=== PATIENT | female | born 1980 | race Caucasian/White ===

== ENCOUNTER 2018-11-04 15:29 | Emergency (ER) | payer BC ==
[2018-11-04 15:39] VITALS: BP 127/73
[2018-11-04] MEDS ORDERED: Alum Hydrox/Mag Hydrox/Simeth 30 ML, Lidocaine 2% 15 ML PO ONE ×2 (16:13)
[2018-11-04] MEDS ORDERED: Pantoprazole 40 MG Tab.CR PO ONE (16:14)
[2018-11-04] MEDS ORDERED: Pantoprazole 40 MG Vial IVPUSH ONE (16:17)
--- NOTE | 2018-11-04 16:28 | EDM.PDOC ---
ED HPI GENERAL MEDICAL PROBLEM - General Chief Complaint: Gastrointestinal Problem Stated Complaint: ABD PAIN Time Seen by Provider: 11/04/18 16:02 Source of Information: Reports: Patient History Limitations: Reports: No Limitations - History of Present Illness INITIAL COMMENTS - FREE TEXT/NARRATIVE: Patient is a 38-year-old female presents ED complaining of generalized abdominal pain described as a crampy sensation that waxes and wanes in intensity. States she's had increased flatulence as well as bubbling sensation to her abdomen. She is concerned about having a few episodes of black diarrhea that started yesterday. Of note patient has taken Pepto-Bismol over the past few days as well. She states her kids recently had gastroenteritis symptoms. States one child had nausea and vomiting with diarrhea that subsided over than few days. This week she had another child had similar symptoms this past Tuesday that has resolved. Patient's symptoms again started 3 days ago. She' s been eating a bland diet. Last ate soup today for lunch. In addition she's also complained of some acid reflux. Has not taken anything for it. She denies any fever, chills, emesis, dysuria, ingestion of battery questional food, recent antibiotic use, out of country travel, or any additional complaints. She denies being . Last menstrual cycle was one week ago. She carries a history of asthma and is on Provera, Advair, and montelukast. She has had no abdominal surgeries. Abdominal Pain Score (Numeric/FACES): 4 - Related Data Allergies Allergy/AdvReac Type Severity Reaction Status Date / Time codeine phosphate AdvReac Nausea Verified 11/04/18 15:40 [From Tylenol-Codeine] hydrocodone AdvReac Vomiting Verified 11/04/18 15:40 Home Meds: Home Meds Fluticasone/Salmeterol [Advair 250-50] 1 inh INH DAILY 04/12/15 [History] Montelukast [Singulair] 10 mg PO ONETIME 04/12/15 [History] Acetaminophen [Tylenol] 650 mg PO Q6H PRN #0 tablet 06/05/16 [Rx] Benzocaine/Menthol [Dermoplast Pain Relief Trezevant] 1 spray TOP ASDIRECTED PRN #0 canister 06/05/16 [Rx] Docusate Sodium [Colace] 100 mg PO BID PRN #0 cap 06/05/16 [Rx] Ibuprofen [IJD: Ibuprofen] 200 - 600 mg PO Q6H PRN #0 tablet 06/05/16 [Rx] Juvencio Cheryl [Tucks] 1 pad TOP ASDIRECTED PRN #0 pad 06/05/16 [Rx] Ondansetron [Zofran ODT] 4 mg PO Q6H PRN #12 tab.dis 11/04/18 [Rx] Past Medical History Other HEENT History: Wears reading glasses Respiratory History: Reports: Asthma, Other (See Below) Other Respiratory History: seasonal allergies, uses inhaler 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: , Spontaneous , Other (See Below) 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: Left breast fibroid removal, 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 ED EXAM, GI/ABD - Physical Exam Exam: See Below Exam Limited By: No Limitations General Appearance: Alert, WD/WN, No Apparent Distress Ears: Hearing Grossly Normal Nose: Normal Inspection Throat/Mouth: Normal Voice, No Airway Compromise Head: Atraumatic, Normocephalic, Sinus Tenderness Neck: Supple Respiratory/Chest: No Respiratory Distress, Lungs Clear, Normal Breath Sounds, No Accessory Muscle Use Cardiovascular: Normal Peripheral Pulses, Regular Rate, Rhythm, No Murmur GI/Abdominal Exam: Soft, No Organomegaly, No Distention, Tender (mild with palpation) Back Exam: Normal Inspection. No: CVA Tenderness (L), CVA Tenderness (R) Extremities: Normal Inspection, Non-Tender, No Pedal Edema Neurological: Alert, Oriented, CN II-XII Intact, Normal Cognition, No Motor/ Sensory Deficits Psychiatric: Normal Affect, Normal Mood Skin Exam: Warm, Dry, Intact, Normal Color, No Rash Course - Vital Signs Last Recorded V/S: Last Vital Signs Temp 97.4 F 05/18/19 15:35 Pulse 77 11/04/18 15:35 Resp 16 11/04/18 15:35 BP 127/73 11/04/18 15:35 Pulse Ox 98 11/04/18 15:35 Orthostatic Blood Pressure [ 121/84 Standing] Orthostatic Blood Pressure [ 131/78 Sitting] Orthostatic Blood Pressure [ 127/73 Supine] - Orders/Labs/Meds Orders: Active Orders 24 hr Category Date Time Status Hemoccult [Fecal Occult Blood Collection] [RC] Care 11/04/18 16:25 Active ASDIRECTED Orthostatic Vital Signs [RC] ASDIRECTED Care 11/04/18 15:50 Active Abdomen 2V AP Flat Upright [CR] Stat Exams 11/04/18 16:13 Taken WBC, STOOL [OP] Stat Lab 11/04/18 16:42 Ordered Labs: Laboratory Tests 11/04/18 11/04/18 11/04/18 Range/Units 15:40 15:40 16:30 WBC 5.88 (3.98-10.04) K/mm3 RBC 4.25 (3.98-5.22) M/mm3 Hgb 12.6 (11.2-15.7) gm/L Hct 38.3 (34.1-44.9) % MCV 90.1 (79.4-94.8) fl MCH 29.6 (25.6-32.2) pg MCHC 32.9 (32.2-35.5) g/dl RDW Std Deviation 43.3 (36.4-46.3) fL Plt Count 186 (182-369) K/mm3 MPV 10.9 (9.4-12.3) fl Neutrophils % (Manual) 51 (40-60) % Band Neutrophils % 2 (0-10) % Lymphocytes % (Manual) 31 (20-40) % Atypical Lymphs % 2 % Monocytes % (Manual) 8 (2-10) % Eosinophils % (Manual) 6 H (0.7-5.8) % Basophils % (Manual) 0 L (0.1-1.2) Platelet Estimate Adequate Plt Morphology Comment Normal RBC Morph Comment Normal Sodium (136-145) mEq/L Potassium (3.5-5.1) mEq/L Chloride (98-107) mEq/L Carbon Dioxide (21-32) mEq/L Anion Gap (5-15) BUN (7-18) mg/dL Creatinine (0.55-1.02) mg/dL Est Cr Clr Drug Dosing mL/min Estimated GFR (MDRD) (>60) mL/min BUN/Creatinine Ratio (14-18) Glucose (74-106) mg/dL Calcium (8.5-10.1) mg/dL Total Bilirubin (0.2-1.0) mg/dL AST (15-37) U/L ALT (14-59) U/L Alkaline Phosphatase (46-116) U/L C-Reactive Protein (<1.0) mg/dL Total Protein (6.4-8.2) g/dl Albumin (3.4-5.0) g/dl Globulin gm/dL Albumin/Globulin Ratio (1-2) Lipase (73-393) U/L Urine Color Yellow (Yellow) Urine Appearance Clear (Clear) Urine pH 6.5 (5.0-8.0) Ur Specific [place] 1.020 (1.005-1.030) Urine Protein Negative (Negative) Urine Glucose (UA) Negative (Negative) Urine Ketones Negative (Negative) Urine Occult Blood 2+ H (Negative) Urine Nitrite Negative (Negative) Urine Bilirubin Negative (Negative) Urine Urobilinogen 0.2 (0.2-1.0) Ur Leukocyte Esterase Negative (Negative) Urine RBC 5-10 H (0-5) /hpf Urine WBC Not seen (0-5) /hpf Ur Epithelial Cells 0-5 (0-5) /hpf Urine Bacteria Few (FEW) /hpf Urine Mucus Rare (FEW) /hpf Urine HCG, Qual Negative (NEGATIVE) 11/04/18 Range/Units 16:30 WBC (3.98-10.04) K/mm3 RBC (3.98-5.22) M/mm3 Hgb (11.2-15.7) gm/L Hct (34.1-44.9) % MCV (79.4-94.8) fl MCH (25.6-32.2) pg MCHC (32.2-35.5) g/dl RDW Std Deviation (36.4-46.3) fL Plt Count (182-369) K/mm3 MPV (9.4-12.3) fl Neutrophils % (Manual) (40-60) % Band Neutrophils % (0-10) % Lymphocytes % (Manual) (20-40) % Atypical Lymphs % % Monocytes % (Manual) (2-10) % Eosinophils % (Manual) (0.7-5.8) % Basophils % (Manual) (0.1-1.2) Platelet Estimate Plt Morphology Comment RBC Morph Comment Sodium 141 (136-145) mEq/L Potassium 3.4 L (3.5-5.1) mEq/L Chloride 107 (98-107) mEq/L Carbon Dioxide 23 (21-32) mEq/L Anion Gap 14.4 (5-15) BUN 15 (7-18) mg/dL Creatinine 0.7 (0.55-1.02) mg/dL Est Cr Clr Drug Dosing 99.01 mL/min Estimated GFR (MDRD) > 60 (>60) mL/min BUN/Creatinine Ratio 21.4 H (14-18) Glucose 94 (74-106) mg/dL Calcium 8.2 L (8.5-10.1) mg/dL Total Bilirubin 0.2 (0.2-1.0) mg/dL AST 23 (15-37) U/L ALT 29 (14-59) U/L Alkaline Phosphatase 58 (46-116) U/L C-Reactive Protein 1.3 H* (<1.0) mg/dL Total Protein 6.5 (6.4-8.2) g/dl Albumin 3.1 L (3.4-5.0) g/dl Globulin 3.4 gm/dL Albumin/Globulin Ratio 0.9 L (1-2) Lipase 156 (73-393) U/L Urine Color (Yellow) Urine Appearance (Clear) Urine pH (5.0-8.0) Ur Specific [place] (1.005-1.030) Urine Protein (Negative) Urine Glucose (UA) (Negative) Urine Ketones (Negative) Urine Occult Blood (Negative) Urine Nitrite (Negative) Urine Bilirubin (Negative) Urine Urobilinogen (0.2-1.0) Ur Leukocyte Esterase (Negative) Urine RBC (0-5) /hpf Urine WBC (0-5) /hpf Ur Epithelial Cells (0-5) /hpf Urine Bacteria (FEW) /hpf Urine Mucus (FEW) /hpf Urine HCG, Qual (NEGATIVE) Meds: Medications Discontinued Medications Generic Name Dose Route Start Last Admin Trade Name Freq PRN Reason Stop Dose Admin Al Hydroxide/Mg Hydroxide 30 0 ml 11/04/18 16:13 11/04/18 16:23 ml/ Lidocaine HCl 15 ml PO 11/04/18 16:14 45 ml ONETIME ONE Administration Pantoprazole Sodium 40 mg 11/04/18 16:14 Protonix PO 11/04/18 16:15 ONETIME ONE Pantoprazole Sodium 40 mg 11/04/18 16:17 11/04/18 16:24 Protonix Iv IVPUSH 11/04/18 16:18 40 mg ONETIME ONE Administration - Re-Assessments/Exams Free Text/Narrative Re-Assessment/Exam: IV was established by nursing staff. Orthostatic vitals were negative. No IVF's required. Mild pain with palpation of the abdomen. Negative McBurney's point, Olivo sign , and/or any adnexal tenderness. Initial labs and studies will include: CBC, chem 14, CRP, lipase, two-view of the abdomen and also Hemoccult test. Patient deferred a rectal exam for stool. Will provide a stool sample to test. Ordered a GI cocktail and also Protonix 40 mg IVP Labs reviewed: CBC unremarkable. CMP indicated potassium 3.4 only mildly low. Kidney function normal. CRP 1.3. Lipase normal. UA indicated 2+ occult blood with urine rbc's and 5-10. She discussed over her menstrual cycle one week ago. No history of kidney stones. 11/04/18 17:32 Patient was able to provide a stool sample. Stool Hemoccult test came back negative. We'll cancel the stool WBCs. Suspect patient has gastroenteritis viral in etiology with recent sick exposures with 2 kids at home with similar symptoms. Discussed lab results and x-ray findings. Etiology most likely viral GI bug. Will run its course of the next few days. Return precautions were discussed with the patient. She had no further questions or concerns. Departure - Departure Time of Disposition: 17:37 Disposition: Home, Self-Care 01 Condition: Good Clinical Impression: Viral diarrhea, Hypokalemia due to loss of potassium Hematuria Qualifiers: Hematuria type: unspecified type Qualified Code(s): R31.9 - Hematuria, unspecified - Discharge Information Prescriptions: Ondansetron [Zofran ODT] 4 mg PO Q6H PRN #12 tab.dis PRN Reason: Nausea/Vomiting Instructions: Dehydration, Adult, [id number], Viral Gastroenteritis, Adult, Diarrhea, Adult, Food Choices to Help Relieve Diarrhea, Adult Referrals: Bozena Dao MAKING MACHINE OPERATOR [Primary Care Provider] - Forms: ED Department Discharge Additional Instructions: Please read the education material in relation to what foods to eat for diarrhea. Use the Zofran as prescribed for nausea/vomiting PRN. Push the fluids. Eat a bland diet. Please return back to the ED if you develop any new or worsening symptoms as discussed. Please follow up with PCP to ensure resolution of blood within the urine. - My Orders Last 24 Hours: My Active Orders 11/04/18 15:50 Orthostatic Vital Signs [RC] ASDIRECTED 11/04/18 16:13 Abdomen 2V AP Flat Upright [CR] Stat 11/04/18 16:25 Hemoccult [Fecal Occult Blood Collection] [RC] ASDIRECTED 11/04/18 16:42 WBC, STOOL [OP] Stat - Assessment/Plan Last 24 Hours: My Active Orders 11/04/18 15:50 Orthostatic Vital Signs [RC] ASDIRECTED 11/04/18 16:13 Abdomen 2V AP Flat Upright [CR] Stat 11/04/18 16:25 Hemoccult [Fecal Occult Blood Collection] [RC] ASDIRECTED 11/04/18 16:42 WBC, STOOL [OP] Stat
--- NOTE | 2018-11-06 07:28 | CR ---
Abdomen: Supine and upright views of the abdomen were obtained. Comparison: No prior abdominal x-ray. Increased gas is noted throughout the colon. Rectal gas is seen and this increased gas does not appear to be obstructive but could represent a mild colonic ileus. No free air is seen. No small bowel dilatation is seen. Calcifications are noted within the pelvis compatible with phleboliths. Impression: 1. Possible colonic ileus. Diagnostic code #2
== END 2018-11-04 17:44 | disposition home or self-care (01) ==
LOC: JD.ED 15:29
DX: A08.4 Viral intestinal infection, unspecified (principal); E87.6 Hypokalemia; R31.9 Hematuria, unspecified; Z88.5 Allergy status to narcotic agent
CPT/HCPCS: 36415; 74019; 80053; 81001; 81025; 83690; 85007; 85027; 86140; 96374; 99284; A9270; C9113; 99283

== ENCOUNTER 2021-04-19 16:55 | Emergency (ER) | payer BC ==
[2021-04-19] MEDS ORDERED: Ondansetron 4 MG/2 ML SDV IVPUSH ONE ×2 (18:07→19:28)
[2021-04-19] MEDS ORDERED: HYDROmorphone 1 MG/ML Syringe IVPUSH STA (18:07)
[2021-04-19] MEDS ORDERED: Alum Hydrox/Mag Hydrox/Simeth 30 ML, Lidocaine 2% 15 ML PO STA ×2 (18:09)
--- NOTE | 2021-04-19 18:11 | EDM.PDOC ---
ED HPI GENERAL MEDICAL PROBLEM - General Chief Complaint: Abdominal Pain Stated Complaint: STOMACH PAIN/LOW BACK PAIN Time Seen by Provider: 04/19/21 17:39 Source of Information: Reports: Patient History Limitations: Reports: No Limitations - History of Present Illness INITIAL COMMENTS - FREE TEXT/NARRATIVE: Mrs. Graham is a very pleasant 40-year-old woman who now presents the ED stating that she developed sharp upper abdominal pain that wraps around to her back like a belt last night, 04/18/2021. She states that the pain has been constant, but progressively getting worse. She states that she feels better if she is hunched over, otherwise, she has not identified any modifiers. She states that she took some TUMS around 04:00 this morning, which did not help. She has not taken any [id number] or home remedies since then. No prior similar symptoms. Here in the ED, the patient's initial BP is found to be mildly elevated 144/100, otherwise, she is hemodynamically stable, afebrile, saturating 100% on room air. She appears to be comfortable, in no acute distress. The patient states that this past Tuesday she had a sore throat and right ear muffled sound, otherwise, the patient denies having a recent fever, chills, ear pain, nasal or sinus congestion, cough, dyspnea, chest pain, palpitations, nausea, vomiting, constipation, diarrhea, urinary symptoms, recent weight gain or weight loss, recent bloody bowel movements or black bowel movements, recent joint aches, headaches, or rashes. The patient does not recall the name of her PCP. Her woman's health provider is Bozena Dao NP. She has not received a COVID vaccination, nor an influenza vaccination this season. Lower Posterior Back Pain Score (Numeric/FACES): 6 Epigastric Pain Score (Numeric/FACES): 6 - Related Data Allergies Allergy/AdvReac Type Severity Reaction Status Date / Time codeine phosphate AdvReac Nausea Verified 04/19/21 17:48 [From Tylenol-Codeine] hydrocodone AdvReac Vomiting Verified 04/19/21 17:48 Home Meds: Home Meds Fluticasone/Salmeterol [Advair 250-50] 1 inh INH DAILY 04/12/15 [History] Montelukast [Singulair] 10 mg PO ONETIME 04/12/15 [History] Acetaminophen [Tylenol] 650 mg PO Q6H PRN #0 tablet 06/05/16 [Rx] Docusate Sodium [Colace] 100 mg PO BID PRN #0 cap 06/05/16 [Rx] Ibuprofen [IJD: Ibuprofen] 200 - 600 mg PO Q6H PRN #0 tablet 06/05/16 [Rx] Sertraline [Zoloft] 100 mg PO DAILY 04/19/21 [History] norgestrel-ethinyl estradioL [Elinest-28 Tablet] 1 tab PO DAILY 04/19/21 [History] Past Medical History HEENT History: Reports: Allergic Rhinitis, Impaired Vision (wears reading glasses) Respiratory History: Reports: Asthma (PFT-proven) Gastrointestinal History: Reports: Colon Polyp, Hemorrhoids (internal and external) 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 (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) Psychiatric History: Reports: Depression () - Infectious Disease History Infectious Disease History: Reports: Chicken Pox, Novel Coronavirus (dx'd Feb 2020) - Past Surgical History HEENT Surgical History: Reports: Naso-Sinus Surgery (x 3), Oral Surgery (dental extractions) GI Surgical History: Reports: Colonoscopy (x 2), Polypectomy Oncologic Surgical History: Reports: Other (See Below) (Left breast fibroid excision (benign)) Social & Family History - Tobacco Use Tobacco Use Status *Q: Never Tobacco User Second Hand Smoke Exposure: No - Caffeine Use Caffeine Use: Reports: Coffee, Tea - Alcohol Use Alcohol Use History: Yes Alcohol Use Frequency: Socially - Recreational Drug Use Recreational Drug Use: No - Living Situation & Occupation Living situation: Reports: , with Spouse, with Family (3 kids) 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 ED EXAM, GI/ABD - Physical Exam Exam: See Below Exam Limited By: No Limitations General Appearance: Alert, WD/WN, No Apparent Distress Eyes: Bilateral: Normal Appearance, EOMI Ears: Normal External Exam, Hearing Grossly Normal Nose: Normal Inspection Throat/Mouth: Normal Inspection, Normal Lips, Normal Voice, No Airway Compromise Head: Atraumatic, Normocephalic Neck: Normal Inspection, Full Range of Motion Respiratory/Chest: No Respiratory Distress, Lungs Clear, Normal Breath Sounds, No Accessory Muscle Use Cardiovascular: Normal Peripheral Pulses, Regular Rate, Rhythm, No Edema, No Gallop, No JVD, No Murmur, No Rub GI/Abdominal Exam: Normal Bowel Sounds, Soft, No Organomegaly, No Distention, No Abnormal Bruit, No Mass, Tender (Mild, generalized, probably more in the upper abdomen than the lower, but suprapubic tenderness, as well) Back Exam: Normal Inspection, Full Range of Motion. No: CVA Tenderness (L), CVA Tenderness (R) Extremities: Normal Inspection, Normal Range of Motion, No Pedal Edema, Normal Capillary Refill Neurological: Alert, Oriented, Normal Cognition, No Motor/Sensory Deficits Psychiatric: Normal Affect Skin Exam: Warm, Dry, Intact, Normal Color, No Rash Course - Vital Signs Last Recorded V/S: Last Vital Signs Temp 36.3 C 04/19/21 17:44 Pulse 76 04/19/21 17:44 Resp 12 04/19/21 17:44 BP 154/90 H 04/19/21 17:44 Pulse Ox 99 04/19/21 17:44 - Orders/Labs/Meds Orders: Active Orders 24 hr Category Date Time Status Abdomen Pelvis w Cont [CT] Stat Exams 04/19/21 18:07 Taken Famotidine [Pepcid] Med 04/19/21 21:32 Stat 40 mg PO ONETIME STA Sodium Chloride 0.9% [Normal Saline] 1,000 ml Med 04/19/21 18:15 Active IV ASDIRECTED Medication Orders Sodium Chloride (Normal Saline) 1,000 mls @ 150 mls/hr IV ASDIRECTED [facility] Last Admin: 04/19/21 18:35 Dose: 150 mls/hr Documented by: MANPREET Labs: Laboratory Tests 04/19/21 04/19/21 04/19/21 Range/Units 17:35 17:35 18:25 WBC 11.17 H (3.98-10.04) K/mm3 RBC 4.56 (3.98-5.22) M/mm3 Hgb 13.5 (11.2-15.7) gm/dl Hct 41.3 (34.1-44.9) % MCV 90.6 (79.4-94.8) fl MCH 29.6 (25.6-32.2) pg MCHC 32.7 (32.2-35.5) g/dl RDW Std Deviation 44.2 (36.4-46.3) fL Plt Count 298 D (182-369) K/mm3 MPV 10.5 (9.4-12.3) fl Neutrophils % (Manual) 65 H (40-60) % Band Neutrophils % 0 (0-10) % Lymphocytes % (Manual) 24 (20-40) % Atypical Lymphs % 2 % Monocytes % (Manual) 6 (2-10) % Eosinophils % (Manual) 3 (0.7-5.8) % Basophils % (Manual) 0 L (0.1-1.2) Platelet Estimate Adequate RBC Morph Comment Normal Sodium (136-145) mEq/L Potassium (3.5-5.1) mEq/L Chloride (98-107) mEq/L Carbon Dioxide (21-32) mEq/L Anion Gap (5-15) BUN (7-18) mg/dL Creatinine (0.55-1.02) mg/dL Est Cr Clr Drug Dosing mL/min Estimated GFR (MDRD) (>60) mL/min BUN/Creatinine Ratio (14-18) Glucose (70-99) mg/dL Calcium (8.5-10.1) mg/dL Total Bilirubin (0.2-1.0) mg/dL AST (15-37) U/L ALT (14-59) U/L Alkaline Phosphatase (46-116) U/L Total Protein (6.4-8.2) g/dl Albumin (3.4-5.0) g/dl Globulin gm/dL Albumin/Globulin Ratio (1-2) Lipase (73-393) U/L Urine Color Yellow (Yellow) Urine Appearance Clear (Clear) Urine pH 6.5 (5.0-8.0) Ur Specific [place] 1.025 (1.005-1.030) Urine Protein Negative (Negative) Urine Glucose (UA) Negative (Negative) Urine Ketones Negative (Negative) Urine Occult Blood 1+ H (Negative) Urine Nitrite Negative (Negative) Urine Bilirubin Negative (Negative) Urine Urobilinogen 0.2 (0.2-1.0) Ur Leukocyte Esterase Negative (Negative) Urine RBC 0-5 (0-5) /hpf Urine WBC 0-5 (0-5) /hpf Ur Squamous Epith Cells 0-5 (0-5) /hpf Urine Bacteria Many H (FEW) /hpf Urine Mucus Not seen (FEW) /hpf Urine HCG, Qual Negative (NEGATIVE) 04/19/21 Range/Units 18:25 WBC (3.98-10.04) K/mm3 RBC (3.98-5.22) M/mm3 Hgb (11.2-15.7) gm/dl Hct (34.1-44.9) % MCV (79.4-94.8) fl MCH (25.6-32.2) pg MCHC (32.2-35.5) g/dl RDW Std Deviation (36.4-46.3) fL Plt Count (182-369) K/mm3 MPV (9.4-12.3) fl Neutrophils % (Manual) (40-60) % Band Neutrophils % (0-10) % Lymphocytes % (Manual) (20-40) % Atypical Lymphs % % Monocytes % (Manual) (2-10) % Eosinophils % (Manual) (0.7-5.8) % Basophils % (Manual) (0.1-1.2) Platelet Estimate RBC Morph Comment Sodium 139 (136-145) mEq/L Potassium 3.5 (3.5-5.1) mEq/L Chloride 105 (98-107) mEq/L Carbon Dioxide 25 (21-32) mEq/L Anion Gap 12.5 (5-15) BUN 16 (7-18) mg/dL Creatinine 1.0 (0.55-1.02) mg/dL Est Cr Clr Drug Dosing 67.96 mL/min Estimated GFR (MDRD) > 60 (>60) mL/min BUN/Creatinine Ratio 16.0 (14-18) Glucose 105 H (70-99) mg/dL Calcium 8.6 (8.5-10.1) mg/dL Total Bilirubin 0.2 (0.2-1.0) mg/dL AST 16 (15-37) U/L ALT 21 (14-59) U/L Alkaline Phosphatase 64 (46-116) U/L Total Protein 7.3 (6.4-8.2) g/dl Albumin 3.3 L (3.4-5.0) g/dl Globulin 4.0 gm/dL Albumin/Globulin Ratio 0.8 L (1-2) Lipase 120 (73-393) U/L Urine Color (Yellow) Urine Appearance (Clear) Urine pH (5.0-8.0) Ur Specific [place] (1.005-1.030) Urine Protein (Negative) Urine Glucose (UA) (Negative) Urine Ketones (Negative) Urine Occult Blood (Negative) Urine Nitrite (Negative) Urine Bilirubin (Negative) Urine Urobilinogen (0.2-1.0) Ur Leukocyte Esterase (Negative) Urine RBC (0-5) /hpf Urine WBC (0-5) /hpf Ur Squamous Epith Cells (0-5) /hpf Urine Bacteria (FEW) /hpf Urine Mucus (FEW) /hpf Urine HCG, Qual (NEGATIVE) Meds: Medications Generic Name Dose Route Start Last Admin Trade Name Freq PRN Reason Stop Dose Admin Sodium Chloride 1,000 mls @ 150 mls/hr 04/19/21 18:15 04/19/21 18:35 Normal Saline IV 150 mls/hr ASDIRECTED PETER Administration Discontinued Medications Generic Name Dose Route Start Last Admin Trade Name Freq PRN Reason Stop Dose Admin Al Hydroxide/Mg Hydroxide 30 0 ml 04/19/21 18:09 04/19/21 18:24 ml/ Lidocaine HCl 15 ml PO 04/19/21 18:10 45 ml ONETIME STA Administration Hydromorphone HCl 0.5 mg 04/19/21 18:07 04/19/21 18:28 Hydromorphone 1 Mg/Ml Syringe IVPUSH 04/19/21 18:08 0.5 mg ONETIME STA Administration Ondansetron HCl 4 mg 04/19/21 18:07 04/19/21 18:26 Ondansetron 4 Mg/2 Ml Sdv IVPUSH 04/19/21 18:08 4 mg ONETIME ONE Administration Ondansetron HCl 4 mg 04/19/21 19:28 04/19/21 19:33 Ondansetron 4 Mg/2 Ml Sdv IVPUSH 04/19/21 19:29 4 mg ONETIME ONE Administration - Re-Assessments/Exams Free Text/Narrative Re-Assessment/Exam: 04/19/21 18:10 The cause of the patient's abdominal pain is not immediately obvious. I have ordered a work-up that includes numerous blood tests, a urinalysis by clean- catch, a urine test, and a CT of the abdomen and pelvis with oral and IV contrast. In the meantime, the patient will be given a GI cocktail, IV Dilaudid, IV Zofran, and IV fluid. 04/19/21 19:02 The patient reports that the GI cocktail initially numbed her epigastric pain. 04/19/21 19:51 The patient's CBC is remarkable for mild leukocytosis of 11.17, but with 0% bandemia, and the remainder of her CBC being unremarkable. Her CMP is remarkable for slight hyperglycemia of 105, and is otherwise unremarkable. Her lipase level is within normal limits at 120. Her urinalysis is unremarkable. Her urine test is negative. 04/19/21 20:38 Notified by the patient's RN that the patient was complaining of some right ear fullness. I went and talked talk to her. She reported that her right ear has been feeling plugged with a muffled sound since 04/14/2021. I looked at both of her ears. Her left TM appears to be perfectly normal, while she likely has mild serous otitis media to her right middle ear. There is no sign of an infection. I explained the anatomy, and recommended that she use a nasal steroid spray. 04/19/21 21:28 CT of the abdomen and pelvis with oral and IV contrast is read by Marbella as: 1. No evidence of acute abnormality in the abdomen or pelvis. 2. Chronic and incidental findings as above. 04/19/21 21:32 Test results discussed with the patient. As above, yumiko's work-up is entirely unremarkable. Because she had some modification of her symptoms following a GI cocktail, that indicates that her pain is either due to esophagitis, gastritis, or GERD. I recommended that we start her on OTC famotidine, and that she take 1 tablet twice a day for 7 days, then decrease the dose to 1 tablet once a day. If her symptoms are adequately treated on 2 tablets a day, but not on 1 tablet a day, she can return to 1 tablet twice a day. If her symptoms are inadequately treated on 1 tablet twice a day, she may need to be on a PPI, but under those circumstances, however did recommend that she follow-up with her PCP to arrange for an EGD. The patient agreed. Departure - Departure Time of Disposition: 21:34 Disposition: Home, Self-Care 01 Condition: Good Clinical Impression: Right serous otitis media, Gastritis, GERD (gastroesophageal reflux disease) - Discharge Information *PRESCRIPTION DRUG MONITORING PROGRAM REVIEWED*: Not Applicable *COPY OF PRESCRIPTION DRUG MONITORING REPORT IN PATIENT ROGERIO: Not Applicable Referrals: Bozena Dao, C[facility]ER [Primary Care Provider] - Forms: ED Department Discharge Additional Instructions: You were seen in the emergency room after developing upper abdominal pain that radiated around like a belt to your back. Work-up in the ER included numerous blood tests, a urinalysis, a urine test, and a CT of your abdomen and pelvis with oral and IV contrast. Your entire work-up was unremarkable. You do not have pancreatitis. There is no evidence of acute cholecystitis. Because you had some modification of your symptoms following a GI cocktail, the cause of your symptoms is most likely due to gastritis, GERD, or esophagitis. You have been started on the antacid famotidine (Pepcid). Famotidine is available [id number], and generic famotidine is just as good as namebrand Pepcid. We recommend that you take 1 tablet of famotidine every 12 hours, starting tomorrow morning, 04/20/2021, for 1 week. After 1 week, you may decrease the dosage to 1 tablet once a day. If your symptoms are well treated with 1 tablet twice a day, but return when you decrease the dosage to 1 tablet once a day, you may increase the dose to 1 ta blet twice a day going forward. If your symptoms are not well treated on 1 tablet twice a day, you may need to be on a stronger antacid medicine, such as a proton pump inhibitor. In that case, however, we recommend that you follow-up with your PCP to arrange for an EGD (scope of the stomach). If any other problems, please do not hesitate to return to the ER. Sepsis Event Note (ED) - Evaluation Sepsis Screening Result: No Definite Risk - Focused Exam Vital Signs: Vital Signs Temp Pulse Resp BP Pulse Ox 04/19/21 17:44 36.3 C 76 12 154/90 H 99 04/19/21 17:05 37.1 C 96 18 144/100 H 98 - My Orders Last 24 Hours: My Active Orders 04/19/21 18:07 Abdomen Pelvis w Cont [CT] Stat 04/19/21 18:15 Sodium Chloride 0.9% [Normal Saline] 1,000 ml IV ASDIRECTED 04/19/21 21:32 Famotidine [Pepcid] 40 mg PO ONETIME STA - Assessment/Plan Last 24 Hours: My Active Orders 04/19/21 18:07 Abdomen Pelvis w Cont [CT] Stat 04/19/21 18:15 Sodium Chloride 0.9% [Normal Saline] 1,000 ml IV ASDIRECTED 04/19/21 21:32 Famotidine [Pepcid] 40 mg PO ONETIME STA
[2021-04-19] MEDS ORDERED: Sodium Chloride 0.9% 1,000 ML IV SCH (18:15)
[2021-04-19] MEDS ORDERED: Famotidine 20 MG Tab PO STA (21:32)
[2021-04-20 00:54] VITALS: BP 139/75; PULSE 80
--- NOTE | 2021-04-20 07:18 | CT ---
CT abdomen and pelvis Technique: Multiple axial sections were obtained from above the dome of the diaphragm inferiorly through the pubic symphysis. Intravenous and oral contrast were utilized. Delayed images were obtained through the bladder. Comparison: Prior abdomen x-ray dated 11/04/18, no prior abdomen and pelvis CT is available. Findings: Visualized lung bases show nothing acute. Liver contains no focal abnormality. Spleen size is normal. Adrenal glands show no nodule. Pancreas appears within normal limits. Gallbladder contains no calcified gallstones. Kidneys show symmetric contrast enhancement. Several small nonobstructing calculi are seen within the right kidney. No ureteral dilatation or ureteral stone is seen. Abdominal aorta shows no aneurysm. No retroperitoneal adenopathy or mesenteric abnormalities are seen. Appendix is seen which is normal in size. No pelvic mass or adenopathy is seen. No discrete bowel abnormality is appreciated. Delayed images show contrast within the distal ureters and the bladder. Bone window settings were reviewed. No acute osseous abnormality is appreciated. Impression: 1. No acute abnormality is identified on CT study of the abdomen and pelvis. Diagnostic code #1 I agree with preliminary report from [facility], finalized on 04/19/21, 9:55 PM CDT, code 1
== END 2021-04-19 21:45 | disposition home or self-care (01) ==
LOC: JD.ED 16:55
DX: K21.9 Gastro-esophageal reflux disease without esophagitis (principal); H65.91 Unspecified nonsuppurative otitis media, right ear; K29.70 Gastritis, unspecified, without bleeding; Z88.5 Allergy status to narcotic agent; Z86.16 Personal history of COVID-19; Z79.899 Other long term (current) drug therapy
CPT/HCPCS: 36415; 74177; 80053; 81001; 81025; 83690; 85007; 85027; 96374; 96375; 96376; 99284; A9270; J1170; J2405; J7030

== ENCOUNTER 2021-05-26 08:48 | Day surgery (SDC) | payer BC ==
[~2021-05-26 08:48] MED LIST: Lactated Ringers 1,000 ML IV SCH; Lidocaine 1%/Sod Bicarbonate in NS 8.4% 1 ML Syringe IDERM PRN; Sodium Chloride 0.9% 10 ML Syringe FLUSH PRN
--- NOTE | 2021-05-26 09:50 | PCM.PREANE ---
Preanesthetic Assessment - Procedure Proposed Procedure: EGD - Anesthesia/Transfusion/Family Hx Anesthesia History: Prior Anesthesia Without Reaction Family History of Anesthesia Reaction: No Transfusion History: No Prior Transfusion(s) - Review of Systems General: No Symptoms Pulmonary: No Symptoms Cardiovascular: No Symptoms Gastrointestinal: Abdominal Pain (heart burn last night) Neurological: No Symptoms Other: Reports: None - Physical Assessment NPO Status Date: 05/25/21 NPO Status Time: 19:30 Vital Signs: Last Vital Signs Temp 36.4 C 05/26/21 09:00 Pulse 90 05/26/21 09:00 Resp 16 05/26/21 09:00 BP 136/97 H 05/26/21 09:00 Pulse Ox 97 05/26/21 09:00 Height: 1.65 m Weight: 85 kg ASA Class: 2 Mental Status: Alert & Oriented x3 Airway Class: Mallampati = 1 Dentition: Reports: Normal Dentition Thyro-Mental Finger Breadths: 3 Mouth Opening Finger Breadths: 3 ROM/Head Extension: Full Lungs: Clear to Auscultation, Normal Respiratory Effort Cardiovascular: Regular Rate, Regular Rhythm - Lab Values: Laboratory Last Values Urine HCG, Qual Negative (NEGATIVE) 05/26/21 09:05 - Allergies Allergies/Adverse Reactions: Allergies Allergy/AdvReac Type Severity Reaction Status Date / Time codeine phosphate AdvReac Nausea Verified 05/25/21 13:15 [From Tylenol-Codeine] hydrocodone AdvReac Vomiting Verified 05/25/21 13:15 - Blood Blood Available: No Product(s) Available: None - Anesthesia Plan Pre-Op Medication Ordered: None - Acknowledgements Anesthesia Type Planned: MAC Pt an Appropriate Candidate for the Planned Anesthesia: Yes Alternatives and Risks of Anesthesia Discussed w Pt/Guardian: Yes Pt/Guardian Understands and Agrees with Anesthesia Plan: Yes PreAnesthesia Questionnaire HEENT History: Reports: Allergic Rhinitis Other HEENT History: Wears reading glasses Cardiovascular History: Reports: None Respiratory History: Reports: Asthma Other Respiratory History: seasonal allergies, uses inhaler Gastrointestinal History: Reports: GERD, Hemorrhoids, Hiatal Hernia, Other (See Below) Other Gastrointestinal History: LLQ pain, abnormal defecation, constipation, stomach pain, C diff Genitourinary History: Reports: Other (See Below) Other Genitourinary History: dysuria 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 Other OB/BYN History: Left breast fibroid removal, 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 a tilted uterus Musculoskeletal History: Reports: Other (See Below) Other Musculoskeletal History: ankle pain, right knee pain Neurological History: Reports: Migraines Psychiatric History: Reports: Anxiety, Depression, Other (See Below) Other Psychiatric History: fatigue Endocrine/Metabolic History: Reports: None Hematologic History: Reports: None Other Hematologic History: decreased platelets Immunologic History: Reports: None Oncologic (Cancer) History: Reports: None Dermatologic History: Reports: Other (See Below) Other Dermatologic History: cystic acne, atypical nevi - Infectious Disease History Infectious Disease History: Reports: C-Difficile - Past Surgical History Head Surgeries/Procedures: Reports: None HEENT Surgical History: Reports: Naso-Sinus Surgery Cardiovascular Surgical History: Reports: None Respiratory Surgical History: Reports: None GI Surgical History: Reports: Colonoscopy, Other (See Below) Other GI Surgeries/Procedures: anal fissurectomy, hemorrhoidectomy Female Surgical History: Reports: None Male Surgical History: Reports: None Endocrine Surgical History: Reports: None Neurological Surgical History: Reports: None Musculoskeletal Surgical History: Reports: None Oncologic Surgical History: Reports: None Dermatological Surgical History: Reports: None - SUBSTANCE USE Tobacco Use Status *Q: Never Tobacco User Tobacco Use Within Last Twelve Months: No Second Hand Smoke Exposure: No Days Per Week of Alcohol Use: 1 Number of Drinks Per Day: 1 Total Drinks Per Week: 1 Recreational Drug Use History: No - HOME MEDS Home Medications: Home Meds Fluticasone/Salmeterol [Advair 250-50] 1 inh INH DAILY 04/12/15 [History] Montelukast [Singulair] 10 mg PO ONETIME 04/12/15 [History] Ibuprofen [IJD: Ibuprofen] 200 - 600 mg PO Q6H PRN #0 tablet 06/05/16 [Rx] Sertraline [Zoloft] 100 mg PO DAILY 04/19/21 [History] norgestrel-ethinyl estradioL [Elinest-28 Tablet] 1 tab PO DAILY 04/19/21 [History] Albuterol Sulfate [Albuterol Sulfate Hfa] 1 puff INH Q4H PRN 05/25/21 [History] Fluticasone Propionate [Flonase] 1 dose NASBOTH BID PRN 05/25/21 [History] Multivitamin 1 tab PO DAILY 05/25/21 [History] - CURRENT (IN HOUSE) MEDS Current Meds: Current Medications Lactated Ringer's (Ringers, Lactated) 1,000 mls @ 125 mls/hr IV ASDIRECTED PETER Stop: 05/26/21 23:20 Last Admin: 05/26/21 09:16 Dose: 125 mls/hr Documented by: Lidocaine/Sodium Bicarbonate (Lidocaine 1%/Sod Bicarbonate In Ns 8.4% 1 Ml Syringe) 0.25 ml IDERM ONETIME PRN PRN Reason: Prior to IV Start Stop: 05/26/21 18:00 Sodium Chloride (Sodium Chloride 0.9% 10 Ml Syringe) 10 ml FLUSH ASDIRECTED PRN PRN Reason: Keep Vein Open Stop: 05/26/21 18:00
[2021-05-26] MEDS ORDERED: Lidocaine 1% 4 ML ONE (10:20)
[2021-05-26] MEDS ORDERED: Propofol 200 MG/20 ML SDV ONE (10:20)
--- NOTE | 2021-05-26 10:50 | PCM.PRNOTE ---
- Free Text/Narrative Note: Date: 05/26/2021 Procedure: diagnostic esophagogastroduodenoscopy Indication: medically refractory GERD, hiatal hernia noted on CT Endoscopist: Sergei oDtson MD Findings: small sliding hiatal hernia Detailed Report: The patient was taken to the endoscopy suite and placed in left lateral decubitus position. Timeout was performed and monitored anesthesia care was initiated. A bite-block was placed. The scope was inserted into the mouth and advanced to the duodenum. Duodenal mucosa appeared normal; a biopsy of mucosa from the duodenal bulb was obtained with cold forceps. The scope was withdrawn into the stomach. The antrum and pylorus appeared normal. A biopsy of antral mucosa was obtained with cold forceps. The remainder of the gastric mucosa appeared normal without evidence of ulceration or inflammation. On retroflexion, small sliding hiatal hernia was appreciated. The scope was withdrawn into the distal esophagus. The Z-line appeared grossly normal, without evidence of gross metaplasia or reflux esophagitis. Several biopsies of distal esophageal mucosa were obtained with cold forceps. Air was suctioned from the stomach prior to withdrawal of the scope. The remainder of the esophagus appeared normal as the scope was withdrawn. The larynx was visualized and vocal cords appeared normal. The patient tolerated the procedure well.
--- NOTE | 2021-05-26 10:51 | PCM48HPAN ---
Post Anesthesia Note - EVALUATION WITHIN 48HRS OF ANESTHETIC Vital Signs in Normal Range: Yes Patient Participated in Evaluation: Yes Respiratory Function Stable: Yes Airway Patent: Yes Cardiovascular Function Stable: Yes Hydration Status Stable: Yes Pain Control Satisfactory: Yes Nausea and Vomiting Control Satisfactory: Yes Mental Status Recovered: Yes Vital Signs: Last Vital Signs Temp 97.7 F 05/26/21 10:43 Pulse 92 05/26/21 10:43 Resp 14 05/26/21 10:43 BP 103/64 05/26/21 10:43 Pulse Ox 97 05/26/21 10:43
[2021-05-26 11:27] VITALS: BP 112/62; PULSE 80
== END 2021-05-26 11:20 | disposition home or self-care (01) ==
LOC: JD.SDS 08:48
PROVIDERS: ATTEND Surgery
DX: K20.0 Eosinophilic esophagitis (principal); K21.9 Gastro-esophageal reflux disease without esophagitis; K44.9 Diaphragmatic hernia without obstruction or gangrene; G43.909 Migraine, unspecified, not intractable, without status migrainosus; Z88.5 Allergy status to narcotic agent; J45.909 Unspecified asthma, uncomplicated; F32.A Depression, unspecified; Z79.899 Other long term (current) drug therapy; Z98.890 Other specified postprocedural states
CPT/HCPCS: 43239; 81025; J2704; J7120; 00731

== ENCOUNTER 2021-05-31 18:24 | Emergency (ER) | payer BC ==
[2021-05-31 19:37] VITALS: BP 147/96; PULSE 81
[2021-05-31] MEDS ORDERED: Lactated Ringers 1,000 ML IV ONE (20:04)
[2021-05-31] MEDS ORDERED: diphenhydrAMINE 50 MG/ML SDV IVPUSH ONE (20:05)
[2021-05-31] MEDS ORDERED: Ondansetron 4 MG/2 ML SDV IVPUSH ONE (20:06)
--- NOTE | 2021-05-31 20:09 | EDM.PDOC ---
ED HPI GENERAL MEDICAL PROBLEM - General Chief Complaint: Headache Stated Complaint: HEADACHE Time Seen by Provider: 05/31/21 20:14 - History of Present Illness INITIAL COMMENTS - FREE TEXT/NARRATIVE: 40-year-old female presents the emergency room with a migraine-like headache. She usually gets several of these a year usually if she can get to an ibuprofen or sound like that she can have it off the past but she did not have such luck today she was not able to get to a medication that acts like abortive treatment.. She usually gets 2 to 3-year like this this 1 is acting of different she has some nausea with a significant headache. And some photophobia and nausea. She is not had any fevers or chills. Patient denies any other complaints at this time. She has not had the Covid vaccine yet. 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: Reports: Other (see below) Other 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: none Frontal Headache Pain Score (Numeric/FACES): 7 - Related Data Allergies Allergy/AdvReac Type Severity Reaction Status Date / Time codeine phosphate AdvReac Severe Nausea Verified 05/31/21 19:31 [From Tylenol-Codeine] hydrocodone AdvReac Severe Vomiting Verified 05/31/21 19:31 Home Meds: Home Meds Fluticasone/Salmeterol [Advair 250-50] 1 inh INH DAILY 04/12/15 [History] Montelukast [Singulair] 10 mg PO BEDTIME 04/12/15 [History] Ibuprofen [IJD: Ibuprofen] 200 - 600 mg PO Q6H PRN #0 tablet 06/05/16 [Rx] Sertraline [Zoloft] 100 mg PO DAILY 04/19/21 [History] norgestrel-ethinyl estradioL [Elinest-28 Tablet] 1 tab PO DAILY 04/19/21 [History] Albuterol Sulfate [Albuterol Sulfate Hfa] 1 puff INH Q4H PRN 05/25/21 [History] Fluticasone Propionate [Flonase] 1 dose NASBOTH BID PRN 05/25/21 [History] Multivitamin 1 tab PO DAILY 05/25/21 [History] Past Medical History HEENT History: Reports: Allergic Rhinitis Other HEENT History: Wears reading glasses Cardiovascular History: Reports: None Respiratory History: Reports: Asthma Other Respiratory History: seasonal allergies, uses inhaler Gastrointestinal History: Reports: GERD, Hemorrhoids, Hiatal Hernia, Other (See Below) Other Gastrointestinal History: LLQ pain, abnormal defecation, constipation, stomach pain, C diff Genitourinary History: Reports: Other (See Below) Other Genitourinary History: dysuria 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 Other BLOOD BANK BOOKING CLERK History: Left breast fibroid removal, 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 a tilted uterus Musculoskeletal History: Reports: Other (See Below) Other Musculoskeletal History: ankle pain, right knee pain Neurological History: Reports: Migraines Psychiatric History: Reports: Anxiety, Depression, Other (See Below) Other Psychiatric History: fatigue Endocrine/Metabolic History: Reports: None Hematologic History: Reports: None Other Hematologic History: decreased platelets Immunologic History: Reports: None Oncologic (Cancer) History: Reports: None Dermatologic History: Reports: Other (See Below) Other Dermatologic History: cystic acne, atypical nevi - Infectious Disease History Infectious Disease History: Reports: C-Difficile, Novel Coronavirus - Past Surgical History Head Surgeries/Procedures: Reports: None HEENT Surgical History: Reports: Naso-Sinus Surgery Other HEENT Surgeries/Procedures: [place] teeth extraction, sinus surgery x 2. Cardiovascular Surgical History: Reports: None Respiratory Surgical History: Reports: None GI Surgical History: Reports: Colonoscopy, Other (See Below) Other GI Surgeries/Procedures: anal fissurectomy, hemorrhoidectomy Female Surgical History: Reports: None Endocrine Surgical History: Reports: None Neurological Surgical History: Reports: None Musculoskeletal Surgical History: Reports: None Oncologic Surgical History: Reports: None Dermatological Surgical History: Reports: None Social & Family History - Tobacco Use Tobacco Use Status *Q: Never Tobacco User - Caffeine Use Caffeine Use: Reports: Coffee - Recreational Drug Use Recreational Drug Use: No - Living Situation & Occupation Living situation: Reports: , with Spouse, with Family (3 kids) 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 Denies: No Symptoms HEENT: Reports: No Symptoms Respiratory: Reports: No Symptoms Cardiovascular: Reports: No Symptoms Endocrine: Reports: No Symptoms GI/Abdominal: Reports: Nausea : Reports: No Symptoms Musculoskeletal: Reports: No Symptoms Skin: Reports: No Symptoms Neurological: Reports: Headache Psychiatric: Reports: No Symptoms Hematologic/Lymphatic: Reports: No Symptoms Immunologic: Reports: No Symptoms - Physical Exam Exam: See Below Exam Limited By: No Limitations General Appearance: Alert, No Apparent Distress Eye Exam: Bilateral Eye: EOMI, Normal Inspection, PERRL Ears: Normal External Exam, Normal Canal, Hearing Grossly Normal, Normal TMs Nose: Normal Inspection, Normal Mucosa, No Blood Throat/Mouth: Normal Inspection, Normal Lips, Normal Teeth, Normal Gums, Normal Oropharynx, Normal Voice, No Airway Compromise Head Exam: Atraumatic, Normocephalic Neck: Normal Inspection, Supple, Non-Tender, Full Range of Motion Respiratory/Chest: No Respiratory Distress, Lungs Clear, Normal Breath Sounds, No Accessory Muscle Use, Chest Non-Tender Cardiovascular: Normal Peripheral Pulses, Regular Rate, Rhythm, No Edema, No Gallop, No JVD, No Murmur, No Rub GI/Abdominal: Normal Bowel Sounds, Soft, Non-Tender, No Organomegaly, No Distention, No Abnormal Bruit, No Mass Neuro Exam (Abbreviated): CN II-XII Intact, Normal Cognition, Normal Reflexes, No Motor/Sensory Deficits. No: Confused, Disoriented, Slow to Respond, Se nsory/Motor Deficit Back Exam: Normal Inspection. No: CVA Tenderness (L), CVA Tenderness (R) Extremities: Normal Inspection, Normal Range of Motion, No Pedal Edema, Other (All muscle groups equal and appropriate) Psychiatric: Normal Affect, Normal Mood Skin Exam: Warm, Dry, Intact, Diaphoretic Course - Vital Signs Last Recorded V/S: Last Vital Signs Temp 37.1 C 05/31/21 19:35 Pulse 81 05/31/21 19:35 Resp 20 05/31/21 19:35 BP 147/96 H 05/31/21 19:35 Pulse Ox 99 05/31/21 19:35 - Orders/Labs/Meds Meds: Medications Discontinued Medications Generic Name Dose Route Start Last Admin Trade Name Freq PRN Reason Stop Dose Admin Diphenhydramine HCl 50 mg 05/31/21 20:05 05/31/21 20:18 Diphenhydramine 50 Mg/Ml Sdv IVPUSH 05/31/21 20:06 50 mg ONETIME ONE Administration Lactated Ringer's 1,000 mls @ 999 mls/hr 05/31/21 20:04 05/31/21 20:19 Ringers, Lactated IV 05/31/21 21:04 999 mls/hr .BOLUS ONE Administration Ketorolac Tromethamine 15 mg 05/31/21 21:22 05/31/21 21:28 Ketorolac 15 Mg/Ml Sdv IVPUSH 05/31/21 21:23 15 mg ONETIME ONE Administration Ondansetron HCl 4 mg 05/31/21 20:06 05/31/21 20:18 Ondansetron 4 Mg/2 Ml Sdv IVPUSH 05/31/21 20:07 4 mg ONETIME ONE Administration - Re-Assessments/Exams Free Text/Narrative Re-Assessment/Exam: 05/31/21 21:47 She received a liter of LR some Benadryl and Zofran. Her headache is down to roughly 50% this was followed up with 15 mg of IV Toradol. When I just checked on the patient she was sleeping she woke up without difficulty and is ready to go home. Departure - Departure Time of Disposition: 21:48 Disposition: Home, Self-Care 01 Clinical Impression: Migraine - Discharge Information Referrals: Cristina De La Rosa NP [Primary Care Provider] - Forms: ED Department Discharge Additional Instructions: Return to the emergency room with any questions problems or worsening symptoms. Go straight home and get plenty of rest you may drink fluids tonight no heavy meals. Wake up tomorrow and have a great week ahead. Sepsis Event Note (ED) - Focused Exam Vital Signs: Vital Signs Temp Pulse Resp BP Pulse Ox 05/31/21 19:35 37.1 C 81 20 147/96 H 99
[2021-05-31] MEDS ORDERED: Ketorolac 15 MG/ML SDV IVPUSH ONE (21:22)
== END 2021-05-31 22:07 | disposition home or self-care (01) ==
LOC: JD.ED 18:24
DX: G43.909 Migraine, unspecified, not intractable, without status migrainosus (principal); J45.909 Unspecified asthma, uncomplicated; Z86.16 Personal history of COVID-19; Z88.5 Allergy status to narcotic agent; Z79.899 Other long term (current) drug therapy
CPT/HCPCS: 96374; 96375; 99283; J1200; J1885; J2405; J7120; 99284

== ENCOUNTER 2022-05-18 09:04 | Day surgery (SDC) | payer BC ==
[~2022-05-18 09:04] MED LIST changes: +Bupivacaine 0.25%/EPINEPHrine 1:200,000 30 ML SDV ONE; +Dexamethasone 4 MG/ML 5 ML MDV ONE; +Dexmedetomidine 200 MCG/2 ML SDV ONE; +HYDROmorphone 0.5 MG/0.5 ML Syringe IVPUSH PRN; +Lidocaine 1% 2 ML ONE; +Lidocaine 1% 8 ML ONE; +Lidocaine 2% Jelly 5 ML Tube ONE; +Midazolam 1 MG/ML 2 ML SDV ONE; +Propofol 200 MG/20 ML SDV ONE; +Rocuronium 50 MG/5 ML Vial ONE; +Sodium Chloride 0.9% 10 ML Syringe FLUSH SCH; +Succinylcholine 200 MG/10 ML MDV ONE; +ceFAZolin 2 GM Vial ONE; +fentaNYL 100 MCG/2 ML SDV ONE
[2022-05-18] MEDS ORDERED: HYDROmorphone 0.5 MG/0.5 ML Syringe ONE (09:10)
[2022-05-18] MEDS ORDERED: Ondansetron 4 MG/2 ML SDV ONE (09:37)
[2022-05-18] MEDS ORDERED: Metoclopramide 10 MG/2 ML SDV ONE (09:37)
[2022-05-18] MEDS ORDERED: Lactated Ringers 500 ML ONE ×2 (09:38)
[2022-05-18] MEDS ORDERED: Bupivacaine 0.25%/EPINEPHrine 1:200,000 30 ML SDV ONE (10:11)
[2022-05-18] MEDS: fentaNYL 100 MCG/2 ML SDV IVPUSH PRN ×2 (11:18→11:36)
[2022-05-18] MEDS ORDERED: oxyCODONE 5 MG Tab PO SCH (11:28)
[2022-05-18 12:17] VITALS: BP 120/68
[2022-05-18 12:57] VITALS: PULSE 80
== END 2022-05-18 13:20 | disposition home or self-care (01) ==
LOC: JD.SDS 09:04
PROVIDERS: ATTEND Obstetrics & Gynecology
DX: N80.9 Endometriosis, unspecified (principal); N83.8 Other noninflammatory disorders of ovary, fallopian tube and broad ligament; F41.9 Anxiety disorder, unspecified; F32.A Depression, unspecified; J45.909 Unspecified asthma, uncomplicated; K21.9 Gastro-esophageal reflux disease without esophagitis; G43.909 Migraine, unspecified, not intractable, without status migrainosus; Z88.5 Allergy status to narcotic agent; Z79.899 Other long term (current) drug therapy; Z86.16 Personal history of COVID-19
CPT/HCPCS: 36415; 58262; 81003; 81025; 86850; 86900; 86901; A9270; J0330; J0690; J1100; J1170; J2250; J2405; J2704; J2765; J3010; J7120; 00944

== ENCOUNTER 2022-05-26 08:19 | Emergency (ER) | payer BC ==
[2022-05-26] MEDS ORDERED: Polyethylene Glycol/Electrolytes 4,000 ML Bottle PO ONE (10:53)
[2022-05-26 11:10] VITALS: BP 128/85; PULSE 68
== END 2022-05-26 11:00 | disposition home or self-care (01) ==
LOC: JD.ED 08:19
DX: K59.09 Other constipation (principal); K21.9 Gastro-esophageal reflux disease without esophagitis; Z88.5 Allergy status to narcotic agent; Z79.899 Other long term (current) drug therapy
CPT/HCPCS: 74018; 99283; A9270

== ENCOUNTER 2023-06-30 09:39 | Day surgery (SDC) | payer BC ==
[~2023-06-30 09:39] MED LIST changes: -Bupivacaine 0.25%/EPINEPHrine 1:200,000 30 ML SDV ONE; -Dexamethasone 4 MG/ML 5 ML MDV ONE; -Dexmedetomidine 200 MCG/2 ML SDV ONE; -HYDROmorphone 0.5 MG/0.5 ML Syringe IVPUSH PRN; -Lidocaine 1% 2 ML ONE; -Lidocaine 1% 8 ML ONE; -Lidocaine 1%/Sod Bicarbonate in NS 8.4% 1 ML Syringe IDERM PRN; -Lidocaine 2% Jelly 5 ML Tube ONE; -Midazolam 1 MG/ML 2 ML SDV ONE; -Propofol 200 MG/20 ML SDV ONE; -Rocuronium 50 MG/5 ML Vial ONE; -Succinylcholine 200 MG/10 ML MDV ONE; -ceFAZolin 2 GM Vial ONE; -fentaNYL 100 MCG/2 ML SDV ONE
[2023-06-30] MEDS ORDERED: Midazolam 1 MG/ML 2 ML SDV ONE (10:28)
[2023-06-30] MEDS ORDERED: Propofol 200 MG/20 ML SDV ONE ×2 (10:28→10:36)
[2023-06-30] MEDS ORDERED: Lidocaine 1% 4 ML ONE (11:06)
[2023-06-30 12:49] VITALS: BP 126/72; PULSE 86
== END 2023-06-30 12:27 | disposition home or self-care (01) ==
LOC: JD.SDS 09:39
PROVIDERS: ATTEND Specialist
DX: K59.09 Other constipation (principal); K62.5 Hemorrhage of anus and rectum; F41.9 Anxiety disorder, unspecified; J45.909 Unspecified asthma, uncomplicated; F32.A Depression, unspecified; K21.9 Gastro-esophageal reflux disease without esophagitis; G43.909 Migraine, unspecified, not intractable, without status migrainosus; Z79.899 Other long term (current) drug therapy; Z98.890 Other specified postprocedural states; Z88.8 Allergy status to other drugs, medicaments and biological substances; Z88.5 Allergy status to narcotic agent
CPT/HCPCS: 45378; J2250; J2704; J7120; J3490